=== PATIENT | female | born 1965 | race African-American/Black ===

== ENCOUNTER 2017-08-20 17:21 | Emergency (ER) | payer MEDICAID ==
[~2017-08-20] VITALS: Ht 160 cm; Wt 61.0 kg
[2017-08-20] MEDS ORDERED: DICL75TA5 PO (17:45)
[2017-08-20] MEDS ORDERED: FOLI-43 PO (17:45)
[2017-08-20] MEDS ORDERED: SIMV20TA6 PO ×2 (17:45)
[2017-08-20] MEDS ORDERED: ETAN50PE SQ (17:45)
[2017-08-20] MEDS ORDERED: METH2.5T PO (17:45)
[2017-08-20] MEDS ORDERED: HYDR200T35 PO (17:45)
[2017-08-20] MEDS ORDERED: KETOROLAC 60MG/2ML VIAL IM STA (19:06)
[2017-08-20 19:55] LABS: BASOPHILS % 0.7 % (0.0-2.0); EOSINOPHILS % 2.5 % (0.0-5.0); HEMATOCRIT. 40.4 % (36.0-48.0); HEMOGLOBIN. 13.6 g/dL (12.0-16.0); LYMPHOCYTES % 35.1 % (20.0-50.0); MEAN CORPUSCULAR HEMOGLOBIN 31.9 pg (28.0-32.0); MEAN CORPUSCULAR VOLUME 94.9 fL (81.0-99.0); MONOCYTES % 6.3 % (2.0-8.0); NEUTROPHILS % 55.4 % (40.0-76.0); PLATELET 192 x1000/uL (130-400); RED BLOOD CELL COUNT 4.25 mill/uL (4.2-5.4); RED CELL DISTRIBUTION WIDTH 14.3 % (11.6-14.6)
[2017-08-20 19:56] LABS: CHLORIDE 106 mEq/L (98-107)
[2017-08-20 20:00] LABS: CLARITY URINE CLEAR (CLEAR); COLOR URINE YELLOW (YELLOW); GLUCOSE URINE NEGATIVE (NEGATIVE); KETONES URINE NEGATIVE (NEGATIVE); LEUKOCYTE ESTERASE URINE NEGATIVE (NEGATIVE); NITRITE URINE NEGATIVE (NEGATIVE); OCCULT BLOOD URINE NEGATIVE (NEGATIVE); PROTEIN URINE NEGATIVE (NEGATIVE); SPECIFIC GRAVITY URINE 1.008 (1.005-1.030); UROBILINOGEN URINE 0.2 E.U./dL (0.2-1.0)
[2017-08-20] MEDS ORDERED: KETOROLAC 30MG/ML VIAL IV ONE (20:00)
[2017-08-20 20:05] LABS: CARBON DIOXIDE 31 mEq/L (21-32)
[2017-08-20 21:38] VITALS: BP 141/89
== END 2017-08-20 21:52 | disposition home or self-care (01) ==
LOC: ER 17:40
DX: R07.89 Other chest pain (principal); M19.90 Unspecified osteoarthritis, unspecified site; E78.00 Pure hypercholesterolemia, unspecified; F17.210 Nicotine dependence, cigarettes, uncomplicated
CPT/HCPCS: 36415; 71010; 80053; 81003; 85025; 93005; 96374; 99285; J1885; Z7610

== ENCOUNTER 2018-09-09 12:13 | Emergency (ER) | payer MEDICAID ==
[~2018-09-09] VITALS: Ht 154.9 cm; Wt 51.0 kg
[~2018-09-09 12:13] MED LIST: DICL75TA5 PO; ETAN50PE SQ; FOLI-43 PO; HYDR200T35 PO; METH2.5T PO; SIMV20TA6 PO
[2018-09-09 16:28] LABS: HEMATOCRIT. 38.9 % (36.0-48.0); HEMOGLOBIN. 13.1 g/dL (12.0-16.0); MEAN CORPUSCULAR HEMOGLOBIN 32.3 pg (28.0-32.0); MEAN CORPUSCULAR VOLUME 95.8 fL (81.0-99.0); MEAN PLATELET VOLUME 9.4 fl (7.4-10.4); PLATELET 195 x1000/uL (130-400); RED BLOOD CELL COUNT 4.06 mill/uL (4.2-5.4); RED CELL DISTRIBUTION WIDTH 13.9 % (11.6-14.6)
[2018-09-09 16:34] LABS: CHLORIDE 107 mEq/L (98-107)
[2018-09-09 16:37] LABS: INR 1.1; PROTHROMBIN TIME 10.6 sec (9.1-11.1)
[2018-09-09 17:01] LABS: PLATELET ESTIMATE NORMAL
[2018-09-09 17:16] VITALS: BP 122/79
== END 2018-09-09 17:18 | disposition home or self-care (01) ==
LOC: ER 12:13
DX: J06.9 Acute upper respiratory infection, unspecified (principal); R07.89 Other chest pain; M54.6 Pain in thoracic spine; E78.00 Pure hypercholesterolemia, unspecified; F17.200 Nicotine dependence, unspecified, uncomplicated; Z79.899 Other long term (current) drug therapy
CPT/HCPCS: 36415; 71045; 84484; 87804; 93005; 99284

== ENCOUNTER 2019-02-22 07:01 | Emergency (ER) | payer MEDICAID ==
[~2019-02-22] VITALS: Ht 154.9 cm; Wt 49.0 kg
[2019-02-22] MEDS ORDERED: ALBUTEROL (0.083%) 2.5MG/3ML NEB HHN STA (09:34)
[2019-02-22] MEDS ORDERED: IPRATROPIUM BROMIDE (0.02%) 0.5MG/2.5ML NEB HHN STA (09:34)
[2019-02-22 10:14] VITALS: BP 129/87
== END 2019-02-22 10:14 | disposition home or self-care (01) ==
LOC: ER 07:50
DX: J40 Bronchitis, not specified as acute or chronic (principal); F17.210 Nicotine dependence, cigarettes, uncomplicated; R03.0 Elevated blood-pressure reading, without diagnosis of hypertension
CPT/HCPCS: 71045; 94640; 99283; J7611

== ENCOUNTER 2019-08-13 21:43 | Inpatient (IN) | payer BC, MEDICAID ==
[~2019-08-13] VITALS: Ht 154.9 cm; Wt 49.9 kg
[2019-08-14] MEDS ORDERED: SODIUM CHLORIDE 0.9% 1,000 ML IV ONE (00:25)
[2019-08-14 00:48] LABS: CHLORIDE 107 mEq/L (98-107)
[2019-08-14 00:53] LABS: BASOPHILS % 0.7 % (0.0-2.0); EOSINOPHILS % 4.3 % (0.0-5.0); HEMATOCRIT. 39.7 % (36.0-48.0); HEMOGLOBIN. 13.4 g/dL (12.0-16.0); LYMPHOCYTES % 33.9 % (20.0-50.0); MEAN CORPUSCULAR HEMOGLOBIN 32.7 pg (28.0-32.0); MEAN CORPUSCULAR VOLUME 97.1 fL (81.0-99.0); MEAN PLATELET VOLUME 9.2 fl (7.4-10.4); MONOCYTES % 7.8 % (2.0-8.0); NEUTROPHILS % 53.3 % (40.0-76.0); PLATELET 229 x1000/uL (130-400); RED BLOOD CELL COUNT 4.09 mill/uL (4.2-5.4); RED CELL DISTRIBUTION WIDTH 14.4 % (11.6-14.6)
[2019-08-14 01:12] LABS: PROTHROMBIN TIME 10.7 sec (9.6-11.0)
[2019-08-14] MEDS ORDERED: IOHEXOL-300 100 ML BOTTLE ONE (05:48)
[2019-08-14 06:54] VITALS: BP 151/82
[2019-08-14 08:00] VITALS: BP_SYST 146; BP_SYST 151; BP_DIAS 57; BP_DIAS 82
[2019-08-14] MEDS ORDERED: KETOROLAC 30MG/ML VIAL IV PRN (08:45)
[2019-08-14] MEDS ORDERED: ONDANSETRON HCL 4MG/2ML INJ IV PRN (08:45)
[2019-08-14] MEDS ORDERED: ACETAMINOPHEN 325MG TABLET PO PRN (08:45)
[2019-08-14] MEDS ORDERED: ASPI-1393 PO (09:45)
[2019-08-14 10:00] LABS: CLARITY URINE CLEAR (CLEAR); COLOR URINE YELLOW (YELLOW); KETONES URINE NEGATIVE (NEGATIVE); LEUKOCYTE ESTERASE URINE 1+ (NEGATIVE); NITRITE URINE NEGATIVE (NEGATIVE); OCCULT BLOOD URINE NEGATIVE (NEGATIVE); PH URINE 7.5 (4.5-8.0); PROTEIN URINE NEGATIVE (NEGATIVE); SPECIFIC GRAVITY URINE 1.006 (1.005-1.030); UROBILINOGEN URINE 0.2 E.U./dL (0.2-1.0)
[2019-08-14] MEDS: PANTOPRAZOLE SODIUM 40 MG/VIAL IV SCH ×2 (10:32→22:28)
[2019-08-14 10:33] LABS: *AMPHETAMINES SCREEN URINE NEGATIVE (NEGATIVE); *BARBITURATES SCREEN URINE NEGATIVE (NEGATIVE); *BENZODIAZEPINES SCREEN URINE NEGATIVE (NEGATIVE); *COCAINE SCREEN URINE NEGATIVE (NEGATIVE); METHADONE URINE SCREEN NEGATIVE (NEGATIVE)
[2019-08-14 10:34] LABS: CANNABINOID URINE SCREEN NEGATIVE (NEGATIVE); OPIATES URINE SCREEN NEGATIVE (NEGATIVE); PHENCYCLIDINE URINE SCREEN NEGATIVE (NEGATIVE)
[2019-08-14 12:00] VITALS: BP 135/76
[2019-08-14] MEDS ORDERED: PNEUMOCOCCAL 23-VAL P-SAC VAC 0.5 ML IM ONE (12:00)
[2019-08-14 12:07] LABS: HEMATOCRIT 39.8 % (36.0-48.0); HEMOGLOBIN 13.4 g/dL (12.0-16.0)
[2019-08-14] MEDS ORDERED: GUAIFENESIN-DM 200MG-20MG/10ML UDC PO PRN (12:45)
[2019-08-14 16:00] VITALS: BP 126/60
[2019-08-14] MEDS ORDERED: BISACODYL 5MG TABLET PO NR (17:30)
[2019-08-14] MEDS ORDERED: CEFTRIAXONE 1 G PREMIX 50 ML IV SCH (18:00)
[2019-08-14 20:00] VITALS: BP 130/73
[2019-08-14] MEDS ORDERED: ZOLPIDEM TARTRATE 5MG TABLET PO PRN (21:00)
[2019-08-14] MEDS: AMLODIPINE 5MG TABLET PO SCH (22:29)
[2019-08-15] VITALS: BP 105/63
[2019-08-15 04:00] VITALS: BP 102/57
[2019-08-15 06:58] LABS: BASOPHILS % 0.6 % (0.0-2.0); HEMATOCRIT. 37.4 % (36.0-48.0); HEMOGLOBIN. 12.7 g/dL (12.0-16.0); LYMPHOCYTES % 23.4 % (20.0-50.0); MEAN CORPUSCULAR HEMOGLOBIN 32.6 pg (28.0-32.0); MEAN PLATELET VOLUME 9.2 fl (7.4-10.4); MONOCYTES % 7.6 % (2.0-8.0); NEUTROPHILS % 64.4 % (40.0-76.0); PLATELET 222 x1000/uL (130-400); RED BLOOD CELL COUNT 3.89 mill/uL (4.2-5.4); RED CELL DISTRIBUTION WIDTH 14.2 % (11.6-14.6)
[2019-08-15 07:51] LABS: CHLORIDE 109 mEq/L (98-107)
[2019-08-15 08:00] VITALS: BP 106/71
[2019-08-15 08:04] LABS: TOTAL IRON BINDING CAPACITY 291 ug/dL (250-450)
[2019-08-15] MEDS: AMLODIPINE 5MG TABLET PO SCH (09:00)
[2019-08-15] MEDS ORDERED: DOCUSATE SODIUM 100MG CAPSULE PO SCH (09:00)
[2019-08-15] MEDS ORDERED: OMEP20TA2 MT (09:33)
[2019-08-15] MEDS ORDERED: LEVO500T2 MT (09:33)
[2019-08-15] MEDS: PANTOPRAZOLE SODIUM 40 MG/VIAL IV SCH (10:31)
[2019-08-15 12:19] VITALS: BP 106/71
== END 2019-08-15 13:53 | disposition home or self-care (01) | DRG 394 ==
LOC: ER 21:43 → 6WST 08-14 03:18 → EDBEDREQTM 08-14 03:19 → EDBEDREQ 08-14 03:19 → ENRESERV 08-14 04:08
PROVIDERS: ADMIT Internal Medicine; ATTEND Internal Medicine
DX: K64.9 Unspecified hemorrhoids (principal); N39.0 Urinary tract infection, site not specified; E78.00 Pure hypercholesterolemia, unspecified; E78.5 Hyperlipidemia, unspecified; F17.210 Nicotine dependence, cigarettes, uncomplicated; I10 Essential (primary) hypertension; J06.9 Acute upper respiratory infection, unspecified; M19.90 Unspecified osteoarthritis, unspecified site; Z79.82 Long term (current) use of aspirin; Z79.899 Other long term (current) drug therapy
CPT/HCPCS: 36415; 71045; 74177; 80048; 80305; 81003; 82270; 82728; 83036; 83540; 83550; 83605; 85014; 85018; 86850; 86900; 90732; 96365; 99285; C9113; J0696; J1885; J7030; Q9967

== ENCOUNTER 2019-10-10 03:28 | Emergency (ER) | payer BC, MEDICAID ==
[~2019-10-10] VITALS: Ht 154.9 cm; Wt 55.0 kg
[~2019-10-10 03:28] MED LIST changes: +ASPI-1497 PO; +LEVO500T2 MT; +OMEP20TA2 MT; +SIMV-43 PO; -SIMV20TA6 PO
[2019-10-10] MEDS ORDERED: IBUPROFEN 600MG TABLET PO ONE (04:30)
[2019-10-10 05:38] VITALS: BP 125/90
== END 2019-10-10 05:39 | disposition home or self-care (01) ==
LOC: ER 03:28
DX: J06.9 Acute upper respiratory infection, unspecified (principal); F17.200 Nicotine dependence, unspecified, uncomplicated; R09.89 Other specified symptoms and signs involving the circulatory and respiratory systems; R51 Headache; Z79.899 Other long term (current) drug therapy
CPT/HCPCS: 87804; 99283